=== PATIENT | male | born 1945 | race Caucasian/White ===

== ENCOUNTER → 2017-01-23 12:26 | Outpatient (CLI) | payer MEDICARE, BC ==
[2015-08-15 05:54] VITALS: BMI 29.1
[~2017-01-23 12:26] MED LIST: COZAAR25 MG PO; TENORMIN25 MG PO; ZOCOR40 MG PO
== END | disposition home or self-care (01) ==
LOC: D.RAD 09:00
DX: S43.492A Other sprain of left shoulder joint, initial encounter (principal)